=== PATIENT | male | born 1960 | race Caucasian/White ===

== ENCOUNTER 2018-04-29 23:05 | Emergency (ER) | payer OTHER ==
[2018-04-29 23:45] LABS: ABSOLUTE BASOPHILS # (AUTO) 0.1 10^3/uL (0.0-0.2); ABSOLUTE LYMPHOCYTES (AUTO) 2.2 10^3/uL (0.5-4.7); ABSOLUTE MONOCYTES (AUTO) 0.5 10^3/uL (0.1-1.4); BASOPHILS % (AUTO) 0.7 % (0-2); EOSINOPHILS % (AUTO) 0.2 % (0-6); HEMATOCRIT 49.2 % (37.9-51.0); HEMOGLOBIN 17.3 g/dL (13.5-17.0); LYMPHOCYTES % (AUTO) 28.3 % (13-45); MEAN CORPUSCULAR HEMOGLOBIN 37.5 pg (27.0-33.4); MEAN CORPUSCULAR HGB CONC 35.2 g/dL (32.0-36.0); MEAN CORPUSCULAR VOLUME 107 fl (80-97); MONOCYTES % (AUTO) 6.4 % (3-13); RED BLOOD COUNT 4.61 10^6/uL (4.35-5.55); RED CELL DISTRIBUTION WIDTH 13.9 % (11.5-14.0); SEGMENTED NEUTROPHILS % (AUTO) 64.4 % (42-78); TOTAL CELLS COUNTED % (AUTO) 100 %; WHITE BLOOD COUNT 7.8 10^3/uL (4.0-10.5)
[2018-04-29 23:48] LABS: PLATELET COUNT 98 10^3/uL (150-450)
[2018-04-29 23:53] LABS: ALANINE AMINOTRANSFERASE 38 U/L (21-72); ALBUMIN 4.2 g/dL (3.5-5.0); ALKALINE PHOSPHATASE 265 U/L (38-126); ASPARTATE AMINO TRANSFERASE 132 U/L (17-59); BILIRUBIN,DIRECT 1.4 mg/dL (0.0-0.4); BILIRUBIN,TOTAL 3.4 mg/dL (0.2-1.3); BLOOD UREA NITROGEN 7 mg/dL (7-20); CALCIUM 9.2 mg/dL (8.4-10.2); GLUCOSE 124 mg/dL (75-110); POTASSIUM 4.3 mmol/L (3.6-5.0); TOTAL PROTEIN 8.5 g/dL (6.3-8.2)
[2018-04-29 23:59] LABS: ANION GAP 21 (5-19); CARBON DIOXIDE 22 mmol/L (22-30); CHLORIDE 95 mmol/L (98-107); SODIUM 137.6 mmol/L (137-145)
[2018-04-30] MEDS: NORMAL SALINE 1000 ML 1,000 ML IV PRN ×2 (00:04→00:05)
--- NOTE | 2018-04-30 00:07 | ER Document Report ---
ED General - General Chief Complaint: Nausea/Vomiting Stated Complaint: VOMITING Time Seen by Provider: 04/29/18 23:43 Mode of Arrival: Ambulatory Information source: Patient Notes: 58-year-old male presents with complaints of abdominal pain vomiting over the past 4 months. Patient notes his abdomen intermittently gets distended he takes Gas-X and the symptoms improve and then returns again. Patient denies any fevers or chills notes constant vomiting. It is noted on previous visits that the patient has a history of alcohol abuse TRAVEL OUTSIDE OF THE [place] IN LAST 30 DAYS: No - HPI Onset: Other Onset/Duration: Intermittent, Waxing and waning Quality of pain: Cramping Severity: Mild Pain Level: 2 Associated symptoms: Nausea, Vomiting Exacerbated by: Food Relieved by: Denies Similar symptoms previously: No Recently seen / treated by doctor: No - Related Data Allergies/Adverse Reactions: berries Allergy (Uncoded 03/26/15 13:21) Past Medical History - Social History Smoking Status: Never Smoker Cigarette use (# per day): No Chew tobacco use (# tins/day): No Smoking Education Provided: No Frequency of alcohol use: Heavy Family History: Reviewed & Not Pertinent Musculoskeletal Medical History: Reports Hx Arthritis Past Surgical History: Reports: Hx Orthopedic Surgery - Bilateral ankles, back Review of Systems - Review of Systems Notes: REVIEW OF SYSTEMS: CONSTITUTIONAL : Denies fever, chills, or sweats. Denies recent illness. EENT: Denies eye, ear, throat, or mouth pain or symptoms. Denies nasal or sinus congestion or discharge. Denies throat, tongue, or mouth swelling or difficulty swallowing. CARDIOVASCULAR: Denies chest pain. Denies palpitations or racing or irregular heart beat. Denies ankle edema. RESPIRATORY: Denies cough, cold, or chest congestion. Denies shortness of breath, difficulty breathing, or wheezing. GASTROINTESTINAL: Admits to abdominal pain vomiting GENITOURINARY: Denies difficulty urinating, painful urination, burning, frequency, blood in urine, or discharge. MUSCULOSKELETAL: Denies back or neck pain or stiffness. Denies joint pain or swelling. SKIN: Denies rash, lesions or sores. HEMATOLOGIC : Denies easy bruising or bleeding. LYMPHATIC: Denies swollen, enlarged glands. NEUROLOGICAL: Denies confusion or altered mental status. Denies passing out or loss of consciousness. Denies dizziness or lightheadedness. Denies headache. Denies weakness or paralysis or loss of use of either side. Denies problems with gait or speech. Denies sensory loss, numbness, or tingling. Denies seizures. PSYCHIATRIC: Denies anxiety or stress. Denies depression, suicidal ideation, or homicidal ideation. ALL OTHER SYSTEMS REVIEWED AND NEGATIVE. Dictation was performed using [employer] voice recognition software PHYSICAL EXAMINATION: GENERAL: Well-appearing, well-nourished and in no acute distress. Poor hygiene HEAD: Atraumatic, normocephalic. EYES: Pupils equal round and reactive to light, extraocular movements intact, sclera anicteric, conjunctiva are normal. ENT: Nares patent, oropharynx clear without exudates. Moist mucous membranes. NECK: Normal range of motion, supple without lymphadenopathy LUNGS: Breath sounds clear to auscultation bilaterally and equal. No wheezes rales or rhonchi. HEART: Tachycardic ABDOMEN: Soft, generalized tenderness epigastric hernia noted Musculoskeletal: Normal range of motion, no pitting or edema. No cyanosis. NEUROLOGICAL: Cranial nerves grossly intact. Normal speech, normal gait. Normal sensory, motor exams PSYCH: Normal mood, normal affect. SKIN: Warm, Dry, normal turgor, no rashes or lesions noted. Physical Exam - Vital signs Vitals: Temp Pulse Resp BP Pulse Ox 98.4 F 135 H 18 158/104 H 98 04/29/18 23:22 04/29/18 23:22 04/29/18 23:22 04/29/18 23:22 04/29/18 23:22 Course - Re-evaluation Re-evalutation: 04/30/18 00:07 Patient's presentation is concerning for a bowel obstruction given his vomiting episodes and statement that he cannot hold any food down, he is noted to be tachycardic, CT abdomen pelvis with oral and IV contrast has been ordered, lab work does note elevated bilirubin 04/30/18 03:37 Patient notes significant improvement of his symptoms, heart rate is down to 98 , he states that he drank 2 bottles of contrast water and has not been nauseous or vomiting. He did receive 2 L of IV fluids as well, I explained to him his elevated bilirubin and liver enzymes however the CT itself noted no significant abnormality, I do believe this is all secondary to his chronic alcohol abuse, patient has been encouraged to decrease amount that he is drinking significantly. I will give him a GI specialist follow with but the patient states he will go through the [place] to be seen. Patient notes he feels much better wishes to go home After performing a Medical Screening Examination, I estimate there is LOW risk for ACUTE APPENDICITIS, BOWEL OBSTRUCTION, ACUTE CHOLECYSTITIS, PERFORATED DIVERTICULITIS, INCARCERATED HERNIA, PANCREATITIS, TESTICULAR TORSION or PERFORATED ULCER, thus I consider the discharge disposition reasonable. Also, there is no evidence or peritonitis, sepsis, or toxicity. I have reevaluated this patient multiple times and no significant life threatening changes are noted. The patient and I have discussed the diagnosis and risks, and we agree with discharging home with close follow-up with the understanding that symptoms and presentations can change. We also discussed returning to the Emergency Department immediately if new or worsening symptoms occur. We have discussed the symptoms which are most concerning (e.g., bloody stool, fever, changing or worsening pain, intractable vomiting - standard verbal up date) that necessitate immediate return. - Vital Signs Vital signs: Temp Pulse Resp BP Pulse Ox 98.4 F 135 H 18 158/104 H 98 04/29/18 23:22 04/29/18 23:22 04/29/18 23:22 04/29/18 23:22 04/29/18 23:22 - Laboratory Result Diagrams: 04/29/18 23:15 04/29/18 23:15 Laboratory results interpreted by me: 04/29/18 04/29/18 04/30/18 23:15 23:15 00:06 Hgb 17.3 H MCV 107 H MCH 37.5 H Plt Count 98 L Chloride 95 L Anion Gap 21 H Glucose 124 H Total Bilirubin 3.4 H Direct Bilirubin 1.4 H AST 132 H Alkaline Phosphatase 265 H Total Protein 8.5 H Urine Protein 30 H Urine Ketones 80 H Urine Urobilinogen 4.0 H Discharge - Discharge Clinical Impression: Nausea & vomiting Qualifiers: Vomiting type: unspecified Vomiting Intractability: non-intractable Qualified Code(s): R11.2 - Nausea with vomiting, unspecified Condition: Stable Disposition: HOME, SELF-CARE Instructions: Vomiting ([facility]) Prescriptions: Metoclopramide HCl [Reglan 10 mg Tablet] 1 - 2 tab PO Q6 #25 tablet Referrals: JULIO CLAYTON MD [ACTIVE STAFF] - Follow up tomorrow
[2018-04-30] MEDS ORDERED: METOCLOPRAMIDE HCL INJ/PF 10 MG/2 ML SDV IV ONE (00:37)
[2018-04-30 00:59] LABS: APPEARANCE,URINE CLEAR; BILIRUBIN,URINE NEGATIVE (NEGATIVE); COLOR,URINE AMBER; GLUCOSE, URINE NEGATIVE (NEGATIVE); KETONES,URINE 80 mg/dL (NEGATIVE); LEUKOCYTE ESTERASE,URINE NEGATIVE (NEGATIVE); NITRITE,URINE NEGATIVE (NEGATIVE); PROTEIN,URINE 30 mg/dL (NEGATIVE); URINE SPECIFIC GRAVITY 1.013
--- NOTE | 2018-04-30 03:04 | RADIOLOGY REPORT (SQ) ---
CT abdomen and pelvis with contrast on 04/30/2018 at 2:28 AM CLINICAL INDICATION: Generalized abdominal pain, vomiting TECHNIQUE: Multiple axial images are obtained throughout the abdomen and pelvis following the administration of IV and oral contrast. This exam was performed according to our departmental dose-optimization program, which includes automated exposure control, adjustment of the mA and/or kV according to patient size and/or use of iterative reconstruction technique. Total DLP is 552.73 mGy*cm. COMPARISON: None FINDINGS: Abdomen: The lung bases are clear. Vascular calcifications are noted. There is fatty infiltration of the liver. There is a small right renal cyst. The solid abdominal organs are otherwise unremarkable. There is no abdominal adenopathy. There is no free fluid or free air within the abdomen. The abdominal portion of the GI tract is unremarkable. Pelvis: There is no free fluid in the pelvis. On the initial scan the distal colon is decompressed but this resolves on the delayed imaging with no definite bowel wall thickening. Pelvic portion of the GI tract including the appendix is unremarkable. There is no pelvic adenopathy. Degenerative changes are noted in the spine. IMPRESSION: 1. Fatty infiltration of the liver. 2. Otherwise essentially unremarkable.
[2018-04-30 04:14] VITALS: BP 102/54
== END 2018-04-30 03:53 | disposition home or self-care (01) ==
LOC: ER 23:05
DX: R11.2 Nausea with vomiting, unspecified (principal); R10.9 Unspecified abdominal pain
CPT/HCPCS: 99284; 96361; 96374; 36415; 83690; 85025; 80053; 81001; 74177; J2765; J7030

== ENCOUNTER 2018-06-09 12:24 | Emergency (ER) | payer OTHER ==
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
[2018-06-09 13:29] LABS: ABSOLUTE LYMPHOCYTES (AUTO) 2.8 10^3/uL (0.5-4.7); ABSOLUTE MONOCYTES (AUTO) 1.2 10^3/uL (0.1-1.4); ABSOLUTE NEUT (AUTO) 5.1 10^3/uL (1.7-8.2); BASOPHILS % (AUTO) 0.2 % (0-2); EOSINOPHILS % (AUTO) 0.4 % (0-6); HEMATOCRIT 46.8 % (37.9-51.0); HEMOGLOBIN 16.7 g/dL (13.5-17.0); LYMPHOCYTES % (AUTO) 30.4 % (13-45); MEAN CORPUSCULAR HEMOGLOBIN 38.7 pg (27.0-33.4); MEAN CORPUSCULAR HGB CONC 35.6 g/dL (32.0-36.0); MEAN CORPUSCULAR VOLUME 109 fl (80-97); MONOCYTES % (AUTO) 12.8 % (3-13); PLATELET COUNT 157 10^3/uL (150-450); RED CELL DISTRIBUTION WIDTH 13.7 % (11.5-14.0); SEGMENTED NEUTROPHILS % (AUTO) 56.2 % (42-78); TOTAL CELLS COUNTED % (AUTO) 100 %; WHITE BLOOD COUNT 9.1 10^3/uL (4.0-10.5)
[2018-06-09 13:58] LABS: ACETAMINOPHEN < 10 ug/mL (10-30); ALANINE AMINOTRANSFERASE 29 U/L (21-72); ALBUMIN 4.4 g/dL (3.5-5.0); ALCOHOL < 10 mg/dL (NONE DETECTED); ALKALINE PHOSPHATASE 284 U/L (38-126); ASPARTATE AMINO TRANSFERASE 93 U/L (17-59); BILIRUBIN,DIRECT 1.9 mg/dL (0.0-0.4); BILIRUBIN,TOTAL 4.1 mg/dL (0.2-1.3); BLOOD UREA NITROGEN 28 mg/dL (7-20); CALCIUM 10.6 mg/dL (8.4-10.2); CHLORIDE 88 mmol/L (98-107); GLUCOSE 92 mg/dL (75-110); POTASSIUM 3.9 mmol/L (3.6-5.0); SALICYLATE < 1.0 mg/dL (2.0-20.0); TOTAL PROTEIN 9.5 g/dL (6.3-8.2)
[2018-06-09 14:02] LABS: APPEARANCE,URINE CLOUDY; BILIRUBIN,URINE SMALL (NEGATIVE); COLOR,URINE AMBER; GLUCOSE, URINE NEGATIVE (NEGATIVE); KETONES,URINE NEGATIVE (NEGATIVE); LEUKOCYTE ESTERASE,URINE NEGATIVE (NEGATIVE); NITRITE,URINE NEGATIVE (NEGATIVE); PROTEIN,URINE 30 mg/dL (NEGATIVE); URINE SPECIFIC GRAVITY 1.025
[2018-06-09 14:03] LABS: CARBON DIOXIDE 30 mmol/L (22-30); SODIUM 137.5 mmol/L (137-145)
[2018-06-09 14:06] LABS: ANION GAP 20 (5-19)
[2018-06-09 14:35] LABS: URINE AMPHETAMINES SCREEN NEGATIVE; URINE BARBITURATES SCREEN NEGATIVE; URINE BENZODIAZEPINES SCREEN NEGATIVE; URINE COCAINE SCREEN NEGATIVE; URINE MARIJUANA (THC) SCREEN NEGATIVE; URINE METHADONE SCREEN NEGATIVE; URINE PHENCYCLIDINE SCREEN NEGATIVE
[2018-06-09] MEDS ORDERED: NORMAL SALINE 1000 ML 1,000 ML IV ONE (15:17)
[2018-06-09 15:29] LABS: PROTHROMBIN TIME 14.8 SEC (11.4-15.4)
[2018-06-09] MEDS ORDERED: DEXTROSE 5%-LACTATED RINGERS 1,000 ML IV ONE (16:48)
[2018-06-09] MEDS ORDERED: THIAMINE HCL 100 MG in NORMAL SALINE 50 ML IV ONE (16:48)
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
[2018-06-09] MEDS ORDERED: THIAMINE HCL INJ 200 MG/2 ML VIAL IV ONE (18:00)
--- NOTE | 2018-06-09 19:32 | EKG REPORT ---
SEVERITY:- BORDERLINE ECG - SINUS RHYTHM BORDERLINE PROLONGED QT INTERVAL : Confirmed by: Esa Muse MD 09-Jun-2018 19:32:04
--- NOTE | 2018-06-10 10:05 | ER Document Report ---
Doctor's Note Notes: 06/10/18 10:04 Rounds: Chart reviewed and patient interviewed. Patient being evaluated for PTSD and hallucinations. He says he also suffers from alcohol withdrawal, his last alcohol being sometime yesterday afternoon. He showed no alcohol in his system on admission other lab studies showed some slight decrease in sodium and chloride and a creatinine slightly elevated at 1.46. Patient received a couple of liters of IV fluids yesterday. Vital signs were all normal. Patient appears to be medically stable for transfer or discharge. Светлана Carpenter MD
[2018-06-10 10:49] VITALS: BP 119/61
--- NOTE | 2018-06-10 15:43 | PSYCHOLOGICAL NOTE ---
Psych Note - Psych Note Psych Note: Reason for consult: hallucinations Consent permissions:none given Patient is a 58 year old male with PTSD and a history of hallucinations presents to the emergency department via EMS due to hallucinations. Patient states [facility] sent him here because they stated he was "hallucinating, having nervous twitches, and an alcoholic". Check in with patient Patient reports that he feels about the same as yesterday. He disclosed that he had not been sleeping eating or drinking very well for the last three days. He asked clinician if that can make a person "lose it." He continued to report "no wonder the match up person thought I lost it." Patient again refuses assistance in sobriety stating he is happy drinking 3-4 beers a day and has no interest in sobriety. He discloses no concerns in regards to his reported events. While he believes the events occurred, he is no longer upset or worried about it. Patient discloses that he is now just bored and is wondering when he will be able to go home. No medication recommendations at this time Diagnosis: 298.9 (F29) unspecified psychosis (possible due to alcohol withdrawal) 291.9 (F10.99) Unspecified Alcohol-Related Disorder 311 (F32.9) Unspecified Depressive Disorder Impression/Plan: Recommendation for rescind of IVC petition. Patient is no longer agitated and upset. He is communicating appropriately with [facility] staff overnight and throughout the day. while the patient believes the events he disclosed still occurred he is no longer demonstrating significant duress regarding his believes. Patient is believed to not part himself or others in danger. Patient no longer meets IVC criteria per [place] GS 122C. Consulted with Dr. Catherine regarding management and care of patient. ED Doctor in agreement with recommendations.
== END 2018-06-10 16:00 | disposition home or self-care (01) ==
LOC: ER 12:24
DX: R44.3 Hallucinations, unspecified (principal); E86.0 Dehydration; R74.8 Abnormal levels of other serum enzymes; F29 Unspecified psychosis not due to a substance or known physiological condition; F17.210 Nicotine dependence, cigarettes, uncomplicated; F10.99 Alcohol use, unspecified with unspecified alcohol-induced disorder
CPT/HCPCS: 93005; 99285; 96361; 96374; 36415; 80307 ×4; 85025; 85610; 80053; 81001; 93010; J3411; J7030

== ENCOUNTER 2018-07-27 20:34 | Emergency (ER) | payer OTHER ==
[2018-07-27 21:13] LABS: ABSOLUTE LYMPHOCYTES (AUTO) 1.7 10^3/uL (0.5-4.7); ABSOLUTE MONOCYTES (AUTO) 0.3 10^3/uL (0.1-1.4); ABSOLUTE NEUT (AUTO) 4.9 10^3/uL (1.7-8.2); BASOPHILS % (AUTO) 0.5 % (0-2); EOSINOPHILS % (AUTO) 0.1 % (0-6); HEMATOCRIT 44.5 % (37.9-51.0); HEMOGLOBIN 15.4 g/dL (13.5-17.0); LYMPHOCYTES % (AUTO) 24.2 % (13-45); MEAN CORPUSCULAR HEMOGLOBIN 37.2 pg (27.0-33.4); MEAN CORPUSCULAR HGB CONC 34.7 g/dL (32.0-36.0); MEAN CORPUSCULAR VOLUME 107 fl (80-97); MONOCYTES % (AUTO) 4.5 % (3-13); PLATELET COUNT 111 10^3/uL (150-450); RED BLOOD COUNT 4.16 10^6/uL (4.35-5.55); RED CELL DISTRIBUTION WIDTH 13.8 % (11.5-14.0); SEGMENTED NEUTROPHILS % (AUTO) 70.7 % (42-78); TOTAL CELLS COUNTED % (AUTO) 100 %
[2018-07-27 21:25] LABS: ALANINE AMINOTRANSFERASE 23 U/L (21-72); ALBUMIN 3.6 g/dL (3.5-5.0); ALKALINE PHOSPHATASE 251 U/L (38-126); ANION GAP 16 (5-19); ASPARTATE AMINO TRANSFERASE 108 U/L (17-59); BILIRUBIN,DIRECT 0.9 mg/dL (0.0-0.4); BILIRUBIN,TOTAL 2.5 mg/dL (0.2-1.3); BLOOD UREA NITROGEN 5 mg/dL (7-20); CALCIUM 8.9 mg/dL (8.4-10.2); CARBON DIOXIDE 25 mmol/L (22-30); CHLORIDE 102 mmol/L (98-107); GLUCOSE 97 mg/dL (75-110); POTASSIUM 4.3 mmol/L (3.6-5.0); SODIUM 142.9 mmol/L (137-145); TOTAL PROTEIN 8.2 g/dL (6.3-8.2)
[2018-07-27] MEDS ORDERED: ONDANSETRON HCL INJ/PF 4 MG/2 ML SDV IV ONE (21:25)
[2018-07-27] MEDS ORDERED: NORMAL SALINE 1000 ML 1,000 ML IV ONE (21:25)
[2018-07-28 00:05] LABS: APPEARANCE,URINE CLEAR; BILIRUBIN,URINE NEGATIVE (NEGATIVE); COLOR,URINE YELLOW; GLUCOSE, URINE NEGATIVE (NEGATIVE); KETONES,URINE 20 mg/dL (NEGATIVE); LEUKOCYTE ESTERASE,URINE NEGATIVE (NEGATIVE); NITRITE,URINE NEGATIVE (NEGATIVE); PROTEIN,URINE NEGATIVE (NEGATIVE); URINE SPECIFIC GRAVITY 1.011
--- NOTE | 2018-07-28 00:37 | ER Document Report ---
ED General - General Chief Complaint: Vomiting Stated Complaint: VOMITING Time Seen by Provider: 07/27/18 21:15 Notes: Patient is a 58-year-old male presenting to the emergency department complaining of vomiting. Patient states he has vomited 6 times since 1800 this evening patient denies blood in his vomit patient also denies abdominal pain, diarrhea, fever, chest pain, shortness of breath. Patient also denies dysuria, testicular pain or swelling. Patient also denies penile discharge. Patient states he has had intermittent episodes of vomiting over the last couple of years. States he has an appointment scheduled for a colonoscopy and EGD patient states he is unsure of the dates but knows it is coming up soon. Patient states he has been in the emergency room for vomiting and for psychiatric issues. Patient currently denies SI, HI, auditory or visual hallucinations. Past medical history: "Fluid on my ankles" patient denies congestive heart failure Medications: Spironolactone Allergies: Various TRAVEL OUTSIDE OF THE [place] IN LAST 30 DAYS: No - Related Data Allergies/Adverse Reactions: berries Allergy (Uncoded 03/26/15 13:21) Past Medical History - Social History Smoking Status: Current Every Day Smoker Frequency of alcohol use: None Drug Abuse: None Lives with: Family Family History: Reviewed & Not Pertinent Patient has suicidal ideation: No Patient has homicidal ideation: No Renal/ Medical History: Denies: Hx Peritoneal Dialysis Musculoskeletal Medical History: Reports Hx Arthritis Psychiatric Medical History: Reports: Hx Post Traumatic Stress Disorder Past Surgical History: Reports: Hx Orthopedic Surgery - Bilateral ankles, back Review of Systems - Review of Systems Constitutional: See HPI EENT: No symptoms reported Cardiovascular: See HPI Respiratory: See HPI Gastrointestinal: See HPI Genitourinary: See HPI Male Genitourinary: See HPI Musculoskeletal: See HPI Skin: No symptoms reported Hematologic/Lymphatic: No symptoms reported Neurological/Psychological: See HPI Physical Exam - Vital signs Vitals: Temp Pulse Resp BP Pulse Ox 98.2 F 115 H 19 152/86 H 96 07/27/18 20:46 07/27/18 20:46 07/27/18 20:46 07/27/18 20:46 07/27/18 20:46 - Notes Notes: GENERAL: Alert, interacts well. No acute distress. HEAD: Normocephalic, atraumatic. EYES: Pupils equal, round, and reactive to light. Extraocular movements intact. ENT: Oral mucosa moist, tongue midline. NECK: Full range of motion. Supple. Trachea midline. LUNGS: Clear to auscultation bilaterally, no wheezes, rales, or rhonchi. No respiratory distress. HEART: Regular rate and rhythm. No murmur ABDOMEN: Soft, non-tender. Non-distended. Bowel sounds present in all 4 quadrants. No Peng sign, no McBurney's point tenderness. EXTREMITIES: Moves all 4 extremities spontaneously. normal radial and dorsalis pedis pulses bilaterally. No cyanosis. Nonpitting edema noted bilateral ankles. Patient states this is his normal. BACK: no cervical, thoracic, lumbar midline tenderness. No saddle anesthesia, normal distal neurovascular exam. NEUROLOGICAL: Alert and oriented x3. Normal speech. cranial nerves II through XII grossly intact PSYCH: Normal affect, normal mood. SKIN: Warm, dry, normal turgor. No rashes or lesions noted. Course - Re-evaluation Re-evalutation: 07/28/18 00:35 Patient was able to p.o. in the emergency department without vomiting. Labs unremarkable. Patient states he no longer feels nauseated. Return precautions given. He continues without abdominal pain. - Vital Signs Vital signs: Temp Pulse Resp BP Pulse Ox 98.2 F 115 H 18 154/70 H 97 07/27/18 20:46 07/27/18 20:46 07/28/18 00:30 07/28/18 00:30 07/28/18 00:30 - Laboratory Result Diagrams: 07/27/18 21:00 07/27/18 21:00 Laboratory results interpreted by me: 07/27/18 07/27/18 07/27/18 21:00 21:00 23:23 RBC 4.16 L MCV 107 H MCH 37.2 H Plt Count 111 L BUN 5 L Total Bilirubin 2.5 H Direct Bilirubin 0.9 H AST 108 H Alkaline Phosphatase 251 H Urine Ketones 20 H Urine Urobilinogen 4.0 H Discharge - Discharge Clinical Impression: Vomiting Qualifiers: Vomiting type: unspecified Vomiting Intractability: non-intractable Nausea presence: with nausea Qualified Code(s): R11.2 - Nausea with vomiting, unspecified Condition: Stable Disposition: HOME, SELF-CARE Instructions: Antinausea Medication ([facility]), Intravenous (IV) Fluids ([facility]), Vomiting ([facility]) Additional Instructions: You have been seen and treated in the emergency department for nausea and vomiting. Your labs were unremarkable at this time. You will be prescribed Zofran which is an anti-nausea medication. Please take it as prescribed. Return to the emergency room should you have any concerning symptoms. Prescriptions: Ondansetron [Zofran Odt 4 mg Tablet] 1 - 2 tab PO Q4H PRN #15 tab.rapdis PRN Reason: For Nausea/Vomiting
[2018-07-28] MEDS ORDERED: ONDANSETRON ODT 4 MG TAB (6 TAB/ER DISP) PO PRN (00:38)
[2018-07-28 00:54] VITALS: BP 154/70
== END 2018-07-28 01:08 | disposition home or self-care (01) ==
LOC: ER 20:34
DX: R11.2 Nausea with vomiting, unspecified (principal); F17.200 Nicotine dependence, unspecified, uncomplicated
CPT/HCPCS: 99283; 96361; 96374; 36415; 85025; 80053; 81001; J2405; J7030

== ENCOUNTER 2019-06-24 12:33 | Day surgery (SDC) | payer OTHER ==
[~2019-06-24 12:33] MED LIST: CHONDR SU A NA/HYALUR INTRAOC KIT (SURGICARE) ONE; EPINEPHRINE INJ/PF 1 MG/1 ML AMPULE ONE; FENTANYL CITRATE INJ/PF 100 MCG/2 ML AMPUL ONE; KETOROLAC TROMETHAMINE 0.45% 4 DROP/0.4 ML DROPERETTE OD PRN; LIDOCAINE 1%/PHENYLEPHRINE 1.5% 1 ML VIAL ONE; MIDAZOLAM 2 MG/2 ML INJ ONE
[2019-06-24] MEDS: TETRACAINE HCL 0.5% OPH SOLN 4 ML OD PRN ×3 (13:25→13:58)
[2019-06-24] MEDS: CYCLOPENTOLATE 0.2%/PHENYLEPHRINE 1% OPH SOLN 2 ML OD PRN ×3 (13:25→13:45)
[2019-06-24] MEDS: TROPICAMIDE 1% OPH SOLN 3 ML OD PRN ×3 (13:25→13:45)
[2019-06-24] MEDS: BESIFLOXACIN HCL 0.6% OPH SUSP 5 ML BOTTLE OD PRN ×4 (13:25→14:28)
[2019-06-24] MEDS: DORZOLAMIDE HCL 2%/TIMOLOL MALEAT 0.5% OPH SOLN 10 ML OD PRN ×2 (14:28)
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
== END 2019-06-24 15:04 | disposition home or self-care (01) ==
LOC: SC 12:33
PROVIDERS: ATTEND Internal Medicine
DX: H25.11 Age-related nuclear cataract, right eye (principal); Z96.1 Presence of intraocular lens
CPT/HCPCS: 66984; 82962; V2787; J2250; J3490 ×2; J0171; J3010; J2370; 142

== ENCOUNTER → 2019-11-19 | Outpatient (CLI) | payer OTHER ==
--- NOTE | 2019-11-19 12:36 | RADIOLOGY REPORT (SQ) ---
EXAM DESCRIPTION: CT LUNG CANCER SCREENING COMPLETED DATE/TIME: 11/19/2019 10:40 am REASON FOR STUDY: Z12.2 ENCNTR SCREEN FOR MALIGNANT NEOPLASM OF RESPIRATORY ORGANS Z12.2 ENCNTR SCR EEN FOR MALIGNANT NEOPLASM OF RESPIRATORY OR Has the patient had a Chest CT scan within the past year? N Was the patient offered tobacco cessation counseling? Y Was the patient engaged in shared decision making for this test? Y Does the patient have signs or symptoms of Lung Cancer? N Is the patient a smoker? Y How many pack years? 44Y How many years since quitting smoking? O Patients age: 59 COMPARISON: None. TECHNIQUE: Low Dose CT scan performed of the chest without intravenous contrast for purposes of scre ening for lung cancer. Images reviewed with lung, soft tissue and bone windows. Reconstructed coron al and sagittal MPR images reviewed. All images stored on PACS. All CT scanners at this facility use dose modulation, iterative reconstruction, and/or weight based d osing when appropriate to reduce radiation dose to as low as reasonably achievable (ALARA). [facility]: Dose Right [facility]: CareDose [facility]: Dose Right [facility]: Teradose 4D [facility]: [employer] RADIATION DOSE: CT Rad equipment meets quality standard of care and radiation dose reduction techniq ues were employed. CTDIvol: 2.0 mGy. DLP: 75 mGy-cm. mGy. . LIMITATIONS: No technical limitations. FINDINGS: LUNGS AND PLEURA: There is a 12 mm pleural-based irregular shaped nodule, wedge-shaped on coronal reconstructions. This is best shown on axial image 304/516 and coronal image 75, and may be postinflammatory rather than neoplastic. Bandlike linear scarring or atelectasis is also present at both lung bases Spotty changes of obstructive lung disease at both lung apices with enlarged airspaces. No pleural e ffusion. No pneumothorax. Airways are patent. HILAR AND MEDIASTINAL STRUCTURES: No identified masses. No abnormal nodes. HEART AND VASCULAR STRUCTURES: No aortic aneurysm. No pericardial effusion. No cardiac devices. CORONARY ARTERY CALCIFICATIONS: Mild to moderate calcifications. UPPER ABDOMEN, THYROID, BONES, OTHER SOFT TISSUES: No significant findings. IMPRESSION: PROBABLY BENIGN FINDINGS IN THE LUNGS. NO OTHER CLINICALLY SIGNIFICANT/POTENTIALLY CLINICALLY SIGNIFICANT FINDINGS LUNGRADS: LUNGRADS: 3, PROBABLY BENIGN. PROBABLY BENIGN FINDING(S)- SHORT TERM FOLLOW UP SUGGESTED; INCLUDES NODULES WITH A LOW LIKELIHOOD OF BECOMING A CLINICALLY ACTIVE CANCER. MODIFIER: NONE. RECOMMENDATION: Followup LDCT in 6 months. COMMENT: CRITERIA: Solid nodule(s): ? 6 mm to < 8 mm at baseline OR new 4 mm to < 6 mm. Part solid nodule(s): ? 6 mm total diameter with solid component < 6 mm OR new < 6 mm total diameter . Non solid nodule(s) (GGN): ? [address] or new. TECHNICAL DOCUMENTATION: JOB ID: [id number] Quality ID # [id number]: Final reports with documentation of one or more dose reduction techniques (e.g., Au tomated exposure control, adjustment of the mA and/or kV according to patient size, use of iterative reconstruction technique) 2010 [facility] Radiology Reading location - IP/workstation name: [email or web address]
== END ==
LOC: RAD 10:20
PROVIDERS: ATTEND Physician Assistant
DX: Z12.2 Encounter for screening for malignant neoplasm of respiratory organs (principal); F17.210 Nicotine dependence, cigarettes, uncomplicated
CPT/HCPCS: G0297